=== PATIENT | female | born 1945 | race African-American/Black ===

== ENCOUNTER 2024-01-15 08:46 | Inpatient (IN) | payer OTHER, MEDICAID ==
[~2024-01-15] VITALS: Ht 165.1 cm; Wt 66.6 kg
[2024-01-15 09:34] LABS: Basophils # (auto) 0 10 ^3/uL (0-0.2); Basophils % (auto) 0.5 % (0.0-2.0); Eosinophils # (auto) 0.1 10 ^3/uL (0-0.8); Hematocrit 40.5 % (36.0-46.0); Hemoglobin 12.6 g/dL (12.2-16.2); Lymphocytes # (auto) 1.8 10 ^3/uL (0.4-5.4); Lymphocytes % (auto) 45.3 % (10.0-50.0); Mean Corpuscular Hemoglobin 25.5 pg (28.0-32.0); Monocytes # (auto) 0.6 10 ^3/uL (0-1.3); Monocytes % (auto) 15.7 % (0.0-12.0); Neutrophils # (auto) 1.5 10 ^3/uL (1.6-8.6); Neutrophils % (auto) 36.5 % (37.0-80.0); Nucleated Red Blood Cells % 0.1 %; Red Blood Cells 4.94 10^6/uL (4.0-5.20); Red Cell Distribution Width 15.2 % (11.8-14.3)
[2024-01-15 09:38] VITALS: PULSE 60; RESP 16; O2SAT 97
[2024-01-15 09:43] LABS: Chloride 109 mmol/L (98-107); Potassium 3.9 mmol/L (3.5-5.1); Sodium 141 mmol/L (136-145)
[2024-01-15 09:44] LABS: Anion Gap 7 (5-15); Calcium 9.7 mg/dL (8.5-10.1); Carbon Dioxide 25 mmol/L (20-30)
[2024-01-15 09:49] LABS: BUN/Creatinine Ratio 13.3 (10.0-20.0); Blood Urea Nitrogen 13 mg/dL (9-23); Glucose 83 mg/dL (74-106)
[2024-01-15] MEDS: HYDROcodone-ACET 5/325MG TAB PO ONE (11:03)
[2024-01-15 11:30] LABS: Urine Bacteria None Seen /hpf (None Seen); Urine WBC None Seen /hpf (0 - 5)
[2024-01-15] MEDS: ONDANSETRON HCL 4 MG/2 ML VIAL IV ONE (11:34)
[2024-01-15] MEDS: MORPHINE SULFATE INJ 2 MG/ml SYRG IV ONE (11:36)
[2024-01-15 11:39] LABS: Urine Blood Negative /uL (Negative); Urine Clarity Clear (Clear); Urine Color Colorless (Yellow); Urine Protein, UAD Negative (Negative); Urine Specific Gravity 1.007 (1.001-1.035); Urine Urobilinogen Normal (Negative); Urine pH 5.5 (5.0-9.0)
[2024-01-15] MEDS: LIDOCAINE 5% TOPICAL PATCH TOP ONE (18:18)
[2024-01-15] MEDS: CLINDAMYCIN 300MG IV 50 ML IV ONE (18:19)
[2024-01-15] MEDS: LISINOPRIL 20 MG TAB PO SCH (18:38)
[2024-01-15] MEDS: hydrALAZINE HCL 25 MG TAB PO SCH (18:39)
[2024-01-15 19:30] VITALS: PULSE 73; RESP 18; O2SAT 99
[2024-01-15] MEDS: ONDANSETRON HCL 4 MG/2 ML VIAL IV PRN (20:49)
[2024-01-15] MEDS: MORPHINE SULFATE INJ 2 MG/ml SYRG IV PRN (20:49)
[2024-01-15] MEDS: CLINDAMYCIN 300MG IV 50 ML IV SCH (21:54)
[2024-01-15 23:59] VITALS: BP 130/78; PULSE 76; PULSE 80; RESP 18; TEMP 98; O2SAT 96
[2024-01-16] VITALS (8 sets, daily range): BP systolic 118–188; BP diastolic 47–79; PULSE 50–66; RESP 16–18; TEMP 97.7–98.3; O2SAT 94–99
[2024-01-16] MEDS ORDERED: DORZ2SOL18 EACHEYE (00:46)
[2024-01-16] MEDS ORDERED: PENI500T2 PO (00:46)
[2024-01-16] MEDS ORDERED: CLOP75TA28 PO (00:46)
[2024-01-16] MEDS ORDERED: ATOR-47 PO (00:46)
[2024-01-16] MEDS ORDERED: AMLO1TAB23 PO (00:46)
[2024-01-16] MEDS ORDERED: LISI40TA16 PO (00:46)
[2024-01-16] MEDS ORDERED: HYDR50TA47 PO (00:46)
[2024-01-16 06:07] LABS: Basophils # (auto) 0 10 ^3/uL (0-0.2); Eosinophils # (auto) 0.1 10 ^3/uL (0-0.8); Lymphocytes # (auto) 2.2 10 ^3/uL (0.4-5.4); Mean Corpuscular Volume 81.5 fL (80.0-100.0); Neutrophils # (auto) 1.5 10 ^3/uL (1.6-8.6); Nucleated Red Blood Cells % 0.1 %
[2024-01-16 06:10] LABS: Basophils % (auto) 0.4 % (0.0-2.0); Eosinophils % (auto) 1.6 % (0.0-7.0); Hematocrit 36.9 % (36.0-46.0); Hemoglobin 11.8 g/dL (12.2-16.2); Mean Corpuscular Hemoglobin 26.1 pg (28.0-32.0); Monocytes # (auto) 0.4 10 ^3/uL (0-1.3); Monocytes % (auto) 10.2 % (0.0-12.0); Neutrophils % (auto) 35.8 % (37.0-80.0); Red Blood Cells 4.52 10^6/uL (4.0-5.20); Red Cell Distribution Width 14.7 % (11.8-14.3); White Blood Cell 4.3 10^3/uL (4.4-10.8)
[2024-01-16 06:20] LABS: Alanine Aminotransferase 16 U/L (7-40); Albumin 3.9 g/dL (3.2-4.8); Alkaline Phosphatase 78 U/L (46-116); Anion Gap 9 (5-15); Aspartate Aminotransferase 16 U/L (13-40); BUN/Creatinine Ratio 12.5 (10.0-20.0); Bilirubin, Total 0.5 mg/dL (0.2-1.0); Blood Urea Nitrogen 14 mg/dL (9-23); Calcium 8.9 mg/dL (8.7-10.4); Carbon Dioxide 22 mmol/L (20-30); Chloride 108 mmol/L (98-107); Glucose 116 mg/dL (74-106); Potassium 3.8 mmol/L (3.5-5.1); Sodium 139 mmol/L (136-145); Total Protein 6.5 g/dL (5.7-8.2)
[2024-01-16] MEDS: DOCUSATE SOD 100 MG CAP PO PRN (09:49)
[2024-01-16] MEDS: HYDROcodone-ACET 5/325MG TAB PO PRN (16:47)
[2024-01-16] MEDS ORDERED: DORZ2SOL26 EACHEYE (16:58)
[2024-01-16] MEDS: IOHEXOL 300 MG/ML 100ML BOTTLE IJ ONE ×2 (17:00→17:16)
[2024-01-16] MEDS: LIDOCAINE 5% TOPICAL PATCH TOP SCH (17:30)
[2024-01-16] MEDS: amLODIPine BESYLATE 5 MG TAB PO ONE (18:39)
[2024-01-16] MEDS: PENICILLIN V POTASSIUM PO SCH (21:04)
[2024-01-16] MEDS: DORZOLAMIDE HCL 2% OPTH(EYE) SOL 10ML EACHEYE SCH (21:07)
[2024-01-16] MEDS: cloNIDine HCL 0.1 MG TAB PO PRN (22:45)
[2024-01-17 05:14] VITALS: BP 173/63; PULSE 60; RESP 18; TEMP 97.5; O2SAT 98
[2024-01-17] MEDS: cloNIDine HCL 0.1 MG TAB PO PRN (05:52)
[2024-01-17 08:30] VITALS: RESP 16; O2SAT 94
[2024-01-17 09:00] VITALS: BP 92/47; PULSE 53; RESP 20; TEMP 97.9; O2SAT 98
[2024-01-17] MEDS: amLODIPine BESYLATE 5 MG TAB PO SCH (10:00)
[2024-01-17 13:00] VITALS: BP 104/50; PULSE 51; RESP 20; TEMP 97.6; O2SAT 100
[2024-01-17] MEDS ORDERED: HYDR-4902 PO (13:22)
[2024-01-17] MEDS ORDERED: CYCL-838 PO (13:31)
== END 2024-01-17 15:30 | disposition home or self-care (01) | DRG 552 ==
LOC: ER 08:46 → OVERFLOW 17:27 → EAST 22:25
PROVIDERS: ADMIT Nurse Practitioner Family; ATTEND Nurse Practitioner Family
DX: M50.31 Other cervical disc degeneration, high cervical region (principal); I69.351 Hemiplegia and hemiparesis following cerebral infarction affecting right dominant side; K04.7 Periapical abscess without sinus; G89.4 Chronic pain syndrome; I25.2 Old myocardial infarction; Z95.5 Presence of coronary angioplasty implant and graft; Z88.5 Allergy status to narcotic agent; Z79.899 Other long term (current) drug therapy
CPT/HCPCS: 36415; 70450; 71045; 71260; 72125; 80048; 80053; 81001; 83880; 84484; 85025; 93005; G0378; J2405; J3490